=== PATIENT | male | born 1990 | race Caucasian/White ===

== ENCOUNTER 2025-01-24 10:39 | Outpatient (CLI) | payer BC, SELFPAY ==
--- OUTSIDE RECORDS SUMMARY | 2025-01-24 11:26 | XMS_ITS | Clinical Summary ---
Author Organization [facility] Address [address] [place] [address] Care Team Providers Care Infantry Unit Leader Name Role Phone Sincere Mccauley Primary Care Provider [phone] Allergies No known active allergies Medications No known medications Encounters Date Type Department Care Team Description 12/20/[address] [facility] [address] [place] [address] Linus Rios MD Home sleep study results / cpap order 12/14/2024 8:00 AM CDT - 12/14/2024 11:59 PM CDT Hospital Encounter 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 Gender Identity Not on file Sexual Orientation Not on file Last Filed Vital Signs Vital Sign Reading Time Taken Comments Blood Pressure 124/87 03/29/2019 11:12 PM CDT Pulse 86 03/29/2019 11:12 PM CDT Temperature 36.6 C (97.9 F) 03/29/2019 11:12 PM CDT Respiratory Rate - - Oxygen Saturation 100% 03/29/2019 11:12 PM CDT Inhaled Oxygen Concentration - - Weight 87.5 kg (193 lb) 12/13/2024 9:21 AM CDT Height 177.8 cm (5' 10) 12/13/2024 9:21 AM CDT Body Mass Index 27.69 12/13/2024 9:21 AM CDT Plan of Treatment Health Maintenance Due Date Last Done Comments Depression Screening 1991 Hepatitis C Screening 1991 Varicella Vaccines (1 of 2 - 13+ 2-dose series) 2004 Regular Well Visit/Exam 18-64 2009 Pneumococcal vaccine <65 (1 of 2 - PCV) 2010 HPV Vaccines (1 - 3-dose SCD M series) 2018 Covid-19 Vaccine (4 - 2023-2 5 season) 2024 05/23/2021, 07/30/2020, 07/02/2020 Influenza Vaccine (#1) 2025 03/31/2024, 2022 DTaP/Tdap/Td Vaccine (7 - Td or Tdap) 03/31/2033 03/31/2023, 02/01/2002, 01/10/1997, Additional history exists Hepatitis B Screening Completed 09/25/1997 , 02/27/1997, 01/10/1997 Procedures Procedure Name Priority Date/Time Associated Diagnosis Comments PORTABLE/HOME SLEEP STUDY Routine 12/14/2024 9:23 AM CDT Obstructive sleep apnea (adult) (pediatric) from Last 3 Months Results * Portable/Home Sleep Study (12/14/2024 9:23 AM CDT) us Linus Rios MD SLEEP CENTER ORDERABLES Fin al Result [facility] [address] [place] [address], [facility] from Last 3 Months Insurance [facility] PL[facility] Care Teams Infantry Unit Leader Relationship Specialty Start Date End Date Sincere Mccauley PA [address] [address] PCP - General Family Medicine 10/13/24
--- OUTSIDE RECORDS SUMMARY | 2025-01-24 11:26 | XMS_ITS | Encounter Summary ---
Author Organization [facility] Address [address] [place] [address] Care Team Providers Care Splicer Apprentice Name Role Phone Ruben Gonzales MD Primary Care Provider [phone] Encounter Details Date Type Department Care Team (Late st Contact Info) Description 11/20/2018 Abstract [facility] [address] [place] [address] , Generic MD Kwasi Social History Tobacco Use Types Packs/Day Years Used Date Smoking Tobacco: Every Day Electronic Cigarettes Smokeless Tobacco: Never Alcohol Use Standard Drinks/Week Comments No 0 (1 standard drink = 0.6 oz pur e alcohol) AUDIT-C Answer Date Recorded Frequency of Alcohol Consumption Never 06/02/2018 Average Number of Drinks Not on file 018 Frequency of Binge Drinking Not on file 05/15 Sex and Gender Information Value Date Recorded Sex Assigned at Male 08/29/2024 9:40 AM CDT Legal Sex Male 7:09 PM CDT Gender Identity Not on file Sexual Orientation Not on file documented as of this encounter Plan of Treatment Not on file documented as of this encounter Visit Diagnoses Not on filedocumented in this encounter Care Teams Splicer Apprentice Relationship Specialty Start Date End Date Ruben Gonzales MD PCP - General 11/25/16 documented as of this encounter
--- OUTSIDE RECORDS SUMMARY | 2025-01-24 11:26 | XMS_ITS | Encounter Summary ---
Author Organization [facility] Address [facility] [place] [address] Care Team Providers Care Mold Closer Helper Name Role Phone Ruben Gonzales MD Primary Care Provider Encounter Details Date Type Department Care Team (Late st Contact Info) Description 12/02/[address] [facility] Conversion Md, Generic Conversion, Social History Tobacco Use Types Packs/Day Years [...] on filedocumented in this encounter Care Teams Mold Closer Helper Relationship Specialty Start Date End Date Ruben Gonzales MD PCP - General 11/25/16 documented as of this encounter
--- OUTSIDE RECORDS SUMMARY | 2025-01-24 11:26 | XMS_ITS | Clinical Summary ---
Author Organization [facility] Address [address] [place] [address] Phone Care Team Providers Care Gambreler Name Role Phone Yury Ram MD Primary Care Provider [phone] Allergies No known active allergies Medications atorvastatin 20 MG PO TABSIndications:n ot taking Take 20 mg by mouth daily. Indications: not taking Active buPROPion (WELLBUTRIN) 300 MG TABLET SR 24 HR XL tabletIndications :Mood disorder (HCC),Attention deficit hyperactivity disorder (ADHD), combined type Take 1 Tab by mouth every morning. 30 Tab 3 5 Active FLUoxetine (PROZAC) 20 MG CapsuleIndication s:Mood disorder (HCC),OCD (obsessive compulsive disorder) Take 1 Cap by mouth daily. 30 Cap 3 5 Active Additional Information Patient not taking.Reported on 03/22/2019 hydrOXYzine (VISTARIL) 50 MG Capsule Take 50 mg by mouth. 9 Active polyethylene glycol (GLYCOLAX) Powder 9 Active QUEtiapine Fumarate 300 MG Tablet Take 300 mg by mouth. 8 Active traZODone (DESYREL) 150 MG Tablet Take 150 mg by mouth. 9 Active hydrocortisone (ANUSOL-HC) 25 MG Suppository 25 mg by Rectal route. 7 Active ibuprofen (MOTRIN) 400 MG Tablet Take 1 Tab by mouth. Active magnesium hydroxide (MILK OF MAGNESIA) 400 MG/5ML Suspension Take 30 mL by mouth. 6 Active PR-ACID 200-200-20 MG/5ML Suspension 9 Active OXcarbazepine (TRILEPTAL) 600 MG Tablet Take 600 mg by mouth. 9 Active Active Problems Problem Noted Date Diagnosed Date Lymphocytosis 11/15/2018 Dysphagia 09/17/2010 Asperger's disorder 06/26/2010 ADHD (attention deficit hyperactivity disorder) 06/26/2010 ODD (oppositional defiant disorder) 06/26/2010 Mood disorder 06/26/2010 Swallowing disorder 06/26/2010 Overview (06/26/2010): Had esophageal dilation at 4yo, hx of 2 fundopla surgeries Family History * Patient is adopted Medical History Relation Name Comments Attention Deficit Hyperactivity Disorder Father Bipolar Disorder Father Depression Maternal Grandmother and anx iety Bipolar Disorder Mother and anxiety Bipolar Disorder Paternal Grandmother Relation Name Status Comments Father Maternal Grandmother Mother Paternal Grandmother Social History Tobacco Use Types Packs/Day Years Used Date Smoking Tobacco: Some Days Cigarettes Smokeless Tobacco: Never Tobacco Cessation:Ready to Q uit: No; Counseling Given: Yes Alcohol Use Standard Drinks/Week Comments Yes 0 (1 standard drink = 0.6 oz pur e alcohol) occ drinker PHQ-2 Answer Date Recorded PHQ-2 Score 0 02/28/2019 Sex and Gender Information Value Date Recorded Sex Assigned at Not on file 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 Gender Identity Not on file Sexual Orientation Not on file Last Filed Vital Signs Vital Sign Reading Time Taken Comments Blood Pressure 130/90 03/22/2019 1:59 PM CDT Pulse 74 03/22/2019 1:59 PM CDT Temperature 36.8 C (98.3 F) 03/22/2019 1:59 PM CDT Respiratory Rate 14 03/22/2019 1:59 PM CDT Oxygen Saturation 97% 03/22/2019 1:59 PM CDT Inhaled Oxygen Concentration - - Weight 67.3 kg (148 lb 6.4 oz) 03/22/2019 1:59 P M CDT Height 177.8 cm (5' 10) 03/22/2019 1:59 PM CDT Body Mass Index 21.29 03/22/2019 1:59 PM CDT Plan of Treatment Health Maintenance Due Date Last Done Comments TdaP Immunization 1991 Human Papillomavirus (HPV) Immunization (1 - 3-dose SCDM series) 2018 SARS-COV-2 Immunization ( season) 2024 05/23/2021, 07/30/2020, 07/02/2020 Influenza Immunization (#1) 2025 Respiratory Syncytial Virus (RSV) Immunization (Adult) (1 - 1-dose 75+ series) 2066 Hepatitis B Immunization Completed 998, 02/27/1997, 01/10/1997 DTaP/Tdap/Td Immunization Discontinued 2001, 01/10/1997, 07/10/1993, Additional history exists Hepatitis C Virus (HCV) Screening Completed 10/15/2018 Meningococcal Immunization (ACWY) Aged Out No longer eligible based on patient's age to complete this topic Pneumococcal Immunization Combined Aged Out No longer eligible based on patient's age to complete this topic Rotavirus Immunization Aged Out No lo nger eligible based on patient's age to complete this topic Insurance MEDICAID [facility] MEDICAID [facility] [employer] Care Teams Gambreler Relationship Specialty Start Date End Date Yury Ram MD [address] [place] [address] PCP - General Family Medicine 12/27/14
--- OUTSIDE RECORDS SUMMARY | 2025-01-24 11:26 | XMS_ITS | Clinical Summary ---
Author Organization [facility] Address [address] [place] [address] Care Team Providers Care Patient Access Registrar Name Role Phone Ruben Gonzales MD Primary Care Provider [phone] Allergies No known active allergies Medications polyethylene glycol packet Take 240 mLs (17 g total) by mouth daily. Active acetaminophen 500 MG tablet Take 2 tablets (1,000 mg total) by mouth every 6 (six) hours as needed for Pain or Fever. Active fluticasone-brigid meterol (ADVAIR DISKUS) 250-50 MCG/ACT inhaler Inhale 1 puff into the lungs 2 (two) times daily. Active divalproex ER (DEPAKOTE) 500 MG 24 hr tablet Take 1 tablet (500 mg total) by mouth daily. Active docusate sodium (COLACE) 100 MG capsule Take 1 capsule (100 mg total) by mouth 2 (two) times daily. Active lamoTRIgine (LAMICTAL) 100 MG tablet Take 1 tablet (100 mg total) by mouth daily. Active LORazepam (ATIVAN) 0.5 MG tablet Take 1 tablet (0.5 mg total) by mouth 2 (two) times a day. Active metFORMIN (GLUCOPHAGE) 500 MG tablet Take 1 tablet (500 mg total) by mouth 2 (two) times daily with meals. Active OLANZapine (ZYPREXA) 15 MG tablet Take 1 tablet (15 mg total) by mouth nightly at bedtime. Active pantoprazole EC (PROTONIX) 40 MG tablet Take 1 tablet (40 mg total) by mouth daily. Active PARoxetine (PAXIL) 30 MG tablet Take 1 tablet (30 mg total) by mouth every morning. Active propranolol (INDERAL) 40 MG tablet Take 1 tablet (40 mg total) by mouth 2 (two) times a day. Active Active Problems Problem Noted Date Diagnosed Date Weight decreasing 11/09/2018 Esophageal stricture 11/03/2016 Hyperlipidemia 02/17/2014 Attention deficit hyperactivity disorder (ADHD) 09/12/2010 Bipolar disorder ([facility]) 09/12/2010 Tourette's disorder 09/12/2010 Family History Medical History Relation Comments COPD Maternal Grandmother Relation Status Comments Maternal Grandmother Social History Tobacco Use Types Packs/Day Years Used Date Smoking Tobacco: Every Day Cigarettes Cigars Smokeless Tobacco: Never Alcohol Use Standard Drinks/Week [...] Sign Reading Time Taken Comments Blood Pressure 138/94 08/29/2024 10:00 AM CDT Pulse 71 08/29/2024 10:00 AM CDT Temperature 35.8 C (96.5 F) 08/29/2024 10:00 AM CDT Respiratory Rate 16 08/29/2024 10:00 AM CDT Oxygen Saturation 96% 08/29/2024 10:00 AM CDT Inhaled Oxygen Concentration - - Weight 88.5 kg (195 lb) 08/29/2024 10:00 AM CDT Height 177.8 cm (5' 10) 08/29/2024 10:00 AM CDT Body Mass Index 27.98 08/29/2024 10:00 AM CDT Plan of Treatment Health Maintenance Due Date Last Done Comments Annual Physical 1994 Pneumococcal Vaccine: Pediatrics (0 to 5 Years) and At-Risk Patients (6 to 49 Years) (1 of 2 - PCV) 2010 HPV Vaccines (1 - 3-dose SCDM series) 2018 COVID-19 Vaccine ( season) 2024 05/23/2021, 07/30/2020, 07/02/2020 DTaP, Tdap and Td Vaccines (5 - Td or Tdap) 03/31/2033 03/31/2023, 02/01/2002, 01/10/1997, Additional history exists Hepatitis B Vaccines Completed 09/25/1997, 02/27/1997, 01/10/1997 Meningococcal Vaccine Aged Out 02/02/2006 No melodie janine eligible based on patient's age to complete this topic Hepatitis C Completed 10/15/2018, 10/15/2018 Meningococcal B Vaccine Aged Out No l onger eligible based on patient's age to complete this topic RSV Immunizations Under 20 Months Aged Out No longer eligible based on patient's age to complete this topic Procedures Procedure Name Priority Date/Time Associated Diagnosis Comments HEPATITIS PANEL,ACUTE Routine 10/15/2018 11:27 AM CDT from Last 3 Months or Most Recently Relevant to Health Maintenance Results * HEPATITIS PANEL,ACUTE (10/15/2018 11:27 AM CDT) HEPATITIS B SURFACE AG NON-REACTI VE NON-REACTI VE 10/15/2018 10:14 PM CDT [facility] HEP B CORE IGM NON-REACTI VE NON-REACTI VE 10/15/2018 8:52 PM CDT [facility] HAV IGM NON-REACTI VE NON-REACTI VE 10/15/2018 8:53 PM CDT [facility] HEPATITIS C AB NON-REACTI VE NON-REACTI VE 10/15/2018 8:52 PM CDT [facility] 10/15/2018 11:2 7 AM CDT 10/15/2018 11:34 AM CDT us Generic Conversion Md [facility] Final R esult [facility] [address] [place] [address], [place] [phone] from Last 3 Months or Most Recently Relevant to Health Maintenance Insurance [place] Advance Directives Documents on File Type Date Recorded Patient Undercutter Operator Expl anation Legal Documents 02/21/2019 2:56 PM 02/12/19 NOTICE REGARDING RESTRICTION OF RIGHTS OF AN INDIVIDUAL -[place] [employer] Guardianship - Permanent 02/21/2019 12:24 PM 12/14/12 PERMANENT GUARDIAN Legal Documents 02/18/2019 3:19 PM 02/15/19 [place] [employer] [employer] [place] [employer] SCREENING AND REFERRAL FORM Care Teams Patient Access Registrar Relationship Specialty Start Date End Date Ruben Gonzales MD PCP - General 11/25/16
--- OUTSIDE RECORDS SUMMARY | 2025-01-24 11:26 | XMS_ITS | Encounter Summary ---
Author Organization [facility] Address [facility] [place] [address] Care Team Providers Care Outsole Flexer Name Role Phone Ruben Gonzales MD Primary Care Provider [phone] Encounter Details Date Type Department Care Team (Late st Contact Info) Description 09/22/2017 Abstract [facility] Conversion Md, Generic Conversion, Social [...] on filedocumented in this encounter Care Teams Outsole Flexer Relationship Specialty Start Date End Date Ruben Gonzaels MD PCP - General 11/25/16 documented as of this encounter
== END 2025-01-24 10:40 | disposition home or self-care (01) ==
LOC: ANHAUDIO 10:40
PROVIDERS: Visit Provider Otolaryngology
DX: H93.13 Tinnitus, bilateral (principal)
CPT/HCPCS: 92557; 92567